=== PATIENT | female | born 1995 | race Asian ===

== ENCOUNTER 2017-12-03 01:56 | Emergency (ER) | payer MEDICAID, OTHER ==
[~2017-12-03] VITALS: Ht 170.2 cm; Wt 65.8 kg
[~2017-12-03 01:56] MED LIST: ADVIL100 MG ORAL; AUGMENTIN 875-1 EAC1 ORAL; BENADRYL25 MG PO; MEDROL DOSEPAK4 MG ORAL; NKM; POLYTRIM OP SOL10 ML OPHTHALM; TYLENOL650 MG/20. ORAL
[2017-12-03] MEDS ORDERED: METOPROLOL SUCC50 MG ORAL (02:07)
--- NOTE | 2017-12-03 02:13 | Emergency Room Report ---
History of Present Illness General Chief Complaint: Nausea, Vomiting, and Diarrhea Source: Patient Present Illness HPI 22-year-old female with no sig pmhx p/w nausea vomiting diarrhea and crampy abdominal pain for 5 hours Patient states pain started gradually , all over her abdomen, non radiating, cramping in nature, intermittent. No relieving or exacerbating factors. Pt reports n/v, 15 episodes of nbnb vomiting, 15 episodes of watery green non bloody diarrhea. Denies black or bloody stools. Subjective fever. No hx of abdominal surgeries. No hx of endoscopies/colonoscopies. No recent antibiotic use or recent travel. No dysuria or hematuria Allergies: Coded Allergies: No Known Allergies (Unverified , 04/02/13) Patient History Past Medical History: see triage record Past Surgical History: none Pertinent Family History: none Last Menstrual Period: 1 week ago Now: No Reviewed Nursing Documentation: PMH: Agreed; PSxH: Agreed Nursing Documentation-PMH Past Medical History: No History, Except For Hx Cardiac Problems: Yes - Irregular heartbeat Review of Systems All Other Systems: negative except mentioned in HPI Physical Exam Vital Signs Date Time Temp Pulse Resp B/P (MAP) Pulse Ox O2 Delivery O2 Flow Rate FiO2 12/03/17 02:02 97.9 88 16 126/79 99 Room Air 97.9 Sp02 EP Interpretation: reviewed, normal General Appearance: alert, GCS 15, non-toxic, mild distress Head: normocephalic, atraumatic Eyes: bilateral eye normal inspection, bilateral eye PERRL, bilateral eye EOMI ENT: normal ENT inspection, normal pharynx, normal voice, moist mucus membranes Neck: normal inspection, full range of motion, supple Respiratory: normal inspection, lungs clear, normal breath sounds, no respiratory distress, no retraction, no wheezing, speaking full sentences, chest symmetrical Cardiovascular #1: normal inspection, regular rate, rhythm, no edema, normal capillary refill Cardiovascular #2: 2+ radial (R), 2+ radial (L) Gastrointestinal: normal inspection, non tender, soft, non-distended, no guarding Musculoskeletal: normal inspection, back normal, normal range of motion, non- tender Neurologic: normal inspection, alert, oriented x3, responsive, motor strength/ tone normal, sensory intact, normal gait, speech normal Psychiatric: normal inspection, judgement/insight normal, memory normal Skin: normal inspection, normal color, no rash, warm/dry, well hydrated, normal turgor Medical Decision Making Diagnostic Impression: Primary Impression: Nausea, vomiting, and diarrhea ER Course 22-year-old female with nausea vomiting diarrhea and crampy abdominal pain Differential Diagnosis: Gastritis, gastroenteritis, cholecystitis, appendicitis, diverticulitis, UTI/ pyelo At this time abdomen is soft nontender, not likely to have acute intra- abdominal surgical pathology, will hold CT for now. Plan: Basic labs, ua Pepcid, Zofran IV fluids ER course: Patient has remained stable during ED stay. Pain improved. no further episodes nausea labs unremarkable Repeat abdominal exam is nontender. Tolerating PO Disposition: Patient is to be discharged to home. Prescriptions given are Zofran Patient is instructed to follow up with their primary care doctor within 5 days. Strict return precautions discussed with patient such as fever, chills, worsening/severe abdominal pain, nausea, vomiting, black or bloody stools, which may indicate severe illness. Patient verbalizes understanding and agrees with plan. Please note that this Emergency Department Report was dictated using [employer] signal[employer] technology software, occasionally this can lead to erroneous entry secondary to interpretation by the dictation equipment Laboratory Tests Test 12/03/17 02:20 12/03/17 03:50 White Blood Count 3.9 K/UL (4.8-10.8) L Red Blood Count 4.64 M/UL (4.20-5.40) Hemoglobin 14.4 G/DL (12.0-16.0) Hematocrit 41.5 % (37.0-47.0) Mean Corpuscular Volume 89 FL (80-99) Mean Corpuscular Hemoglobin 31.0 PG (27.0-31.0) Mean Corpuscular Hemoglobin Concent 34.7 G/DL (32.0-36.0) Red Cell Distribution Width 11.2 % (11.6-14.8) L Platelet Count 203 K/UL (150-450) Mean Platelet Volume 8.2 FL (6.5-10.1) Neutrophils (%) (Auto) 65.7 % (45.0-75.0) Lymphocytes (%) (Auto) 21.9 % (20.0-45.0) Monocytes (%) (Auto) 10.1 % (1.0-10.0) H Eosinophils (%) (Auto) 1.6 % (0.0-3.0) Basophils (%) (Auto) 0.7 % (0.0-2.0) Sodium Level 139 MMOL/L (136-145) Potassium Level 3.5 MMOL/L (3.5-5.1) Chloride Level 102 MMOL/L (98-107) Carbon Dioxide Level 30 MMOL/L (21-32) Anion Gap 7 mmol/L (5-15) Blood Urea Nitrogen 9 mg/dL (7-18) Creatinine 0.8 MG/DL (0.55-1.30) Estimate Glomerular Filtration Rate > 60 mL/min (>60) Glucose Level 91 MG/DL (74-106) Calcium Level 8.8 MG/DL (8.5-10.1) Total Bilirubin 0.3 MG/DL (0.2-1.0) Aspartate Amino Transferase (AST) 27 U/L (15-37) Alanine Aminotransferase (ALT) 35 U/L (12-78) Alkaline Phosphatase 73 U/L (46-116) Total Protein 8.5 G/DL (6.4-8.2) H Albumin 4.2 G/DL (3.4-5.0) Globulin 4.3 g/dL Albumin/Globulin Ratio 1.0 (1.0-2.7) Lipase 89 U/L (73-393) Urine Color Pale yellow Urine Appearance Slightly cloudy Urine pH 5 (4.5-8.0) Urine Specific [place] 1.010 (1.005-1.035) Urine Protein Negative (NEGATIVE) Urine Glucose (UA) Negative (NEGATIVE) Urine Ketones 2+ (NEGATIVE) H Urine Occult Blood 2+ (NEGATIVE) H Urine Nitrite Negative (NEGATIVE) Urine Bilirubin Negative (NEGATIVE) Urine Urobilinogen Normal MG/DL (0.0-1.0) Urine Leukocyte Esterase 1+ (NEGATIVE) H Urine RBC 2-4 /HPF (0 - 2) H Urine WBC 5-10 /HPF (0 - 2) H Urine Squamous Epithelial Cells Moderate /LPF (NONE/OCC) H Urine Transitional Epithelial Cells /LPF (NONE) Urine Bacteria Few /HPF (NONE) Urine HCG, Qualitative Negative (NEGATIVE) Last Vital Signs Date Time Temp Pulse Resp B/P (MAP) Pulse Ox O2 Delivery O2 Flow Rate FiO2 12/03/17 02:02 97.9 88 16 126/79 99 Room Air 97.9 Disposition: HOME, SELF-CARE Condition: Improved Scripts Ondansetron Odt* (ZOFRAN ODT*) 4 Mg Tab.rapdis 4 MG ORAL Q6H PRN for Nausea & Vomiting, #15 TAB 0 Refills Prov: Vicenta Alexis M.D. 12/03/17 Patient Instructions: VOMITING AND DIARRHEA, Nonspecific (Adult) Vicenta Alexis M.D. Dec 03, 2017 02:13
[2017-12-03 02:15] VITALS: BP 126/79
[2017-12-03 03:32] LABS: BASOPHILS % (AUTO) 0.7 % (0.0-2.0); EOSINOPHILS % (AUTO) 1.6 % (0.0-3.0); HEMATOCRIT 41.5 % (37.0-47.0); HEMOGLOBIN 14.4 G/DL (12.0-16.0); LYMPHOCYTES % (AUTO) 21.9 % (20.0-45.0); MEAN CORPUSCULAR VOLUME 89 FL (80-99); MONOCYTES % (AUTO) 10.1 % (1.0-10.0); NEUTROPHILS % (AUTO) 65.7 % (45.0-75.0); PLATELET COUNT 203 K/UL (150-450); RED BLOOD COUNT 4.64 M/UL (4.20-5.40); RED CELL DISTRIBUTION WIDTH 11.2 % (11.6-14.8); WHITE BLOOD COUNT 3.9 K/UL (4.8-10.8)
[2017-12-03 03:36] LABS: ANION GAP 7 mmol/L (5-15); BLOOD UREA NITROGEN 9 mg/dL (7-18); CALCIUM 8.8 MG/DL (8.5-10.1); CARBON DIOXIDE 30 MMOL/L (21-32); CHLORIDE 102 MMOL/L (98-107); CREATININE 0.8 MG/DL (0.55-1.30); POTASSIUM 3.5 MMOL/L (3.5-5.1); SODIUM 139 MMOL/L (136-145)
[2017-12-03 03:41] LABS: ALANINE AMINOTRANSFERASE 35 U/L (12-78); ALBUMIN 4.2 G/DL (3.4-5.0); ALKALINE PHOSPHATASE 73 U/L (46-116); ASPARTATE AMINO TRANSFERASE 27 U/L (15-37); BILIRUBIN,TOTAL 0.3 MG/DL (0.2-1.0)
[2017-12-03] MEDS ORDERED: ZOFRAN ODT4 MG ORAL (04:23)
[2017-12-03 05:32] LABS: APPEARANCE,URINE SLIGHTLY CLOUDY; BILIRUBIN, URINE NEGATIVE (NEGATIVE); GLUCOSE, URINE (UA) NEGATIVE (NEGATIVE); LEUKOCYTE ESTERASE ,URINE 1+ (NEGATIVE); NITRITE,URINE NEGATIVE (NEGATIVE); UROBILINOGEN,URINE NORMAL MG/DL (0.0-1.0)
[2017-12-03 05:35] LABS: COLOR,URINE PALE YELLOW; KETONES,URINE 2+ (NEGATIVE); PH,URINE 5 (4.5-8.0); PROTEIN,URINE NEGATIVE (NEGATIVE)
[2017-12-03 06:10] VITALS: BP 116/63
== END 2017-12-03 06:10 | disposition home or self-care (01) ==
LOC: EMR 02:20
DX: R11.2 Nausea with vomiting, unspecified (principal); R19.7 Diarrhea, unspecified
CPT/HCPCS: 36415; 80053; 81003; 81025; 83690; 85025; 96374; 96375; 99284; J2405; S0028

== ENCOUNTER 2020-07-29 10:56 | Emergency (ER) | payer MEDICAID ==
[~2020-07-29] VITALS: Ht 167.6 cm; Wt 68.0 kg
[~2020-07-29 10:56] MED LIST changes: +METOPROLOL SUCC50 MG ORAL; +ZOFRAN ODT4 MG ORAL
--- NOTE | 2020-07-29 11:06 | NUR ---
ED Nurse Note: Patient walked in to ER from home due to left knee pain since last night, unk cause. Denies fall/ injury to the area. AAOx4, no SOB. ERMD at bedside.
[2020-07-29] MEDS ORDERED: IBUPROFEN600 M1 ORAL (11:15)
--- NOTE | 2020-07-29 11:18 | Emergency Room Report ---
History of Present Illness General Chief Complaint: Lower Extremity Injury Source: Patient Present Illness HPI Disclaimer: Please note that this report is being documented using [employer] technology. This can lead to erroneous entry secondary to incorrect interpretation by the dictating instrument. HPI: 25-year-old female presents for evaluation of atraumatic left knee pain. Symptoms present 1 day. She went to bed in her usual state of health and award today with stiffness in the left knee. Pain is located over the proximal tibia. Denies pain over the patella or lateral portion of the knee. Denies swelling, effusion, redness, warmth, throbbing. Pain is exacerbated flexing the knee past 90 degrees. Initially difficult to start ambulating but better with movement. Has not taken any medication prior to arrival. No prior history of injury. No prior history of instrumentation. Does not inject any medications or IV drugs. Denies recent dysuria, vaginal discharge other signs of cervicitis. PMH: Denied PSH: Denied Allergies: Denied Social Hx: Denied Allergies: Coded Allergies: No Known Allergies (Unverified , 04/02/13) COVID-19 Screening Contact w/high risk pt: No Experienced COVID-19 symptoms?: No COVID-19 Testing performed MULE RIDER: No Patient History Last Menstrual Period: 06/24/2020 Now: No Nursing Documentation-PMH Hx Cardiac Problems: Yes - Irregular heartbeat Review of Systems All Other Systems: negative except mentioned in HPI Physical Exam Vital Signs Date Time Temp Pulse Resp B/P (MAP) Pulse Ox O2 Delivery O2 Flow Rate FiO2 07/29/20 11:02 98.4 81 20 129/70 (89) 96 Room Air General: Awake and alert, no acute distress HEENT: NC/AT. EOMI. Resp: Normal work of breathing Skin: Intact. No abrasions, laceration or rash over the exposed skin MSK: Normal tone and bulk. Moving all extremities. No obvious deformity. No effusion around the left knee. Tender to palpation over the proximal tibia. No palpable deformity. There is no instability on varus or valgus testing. Kerry testing unremarkable. Patella in anatomic position nontender. No tenderness over the fibula Neuro: Awake and alert. Mentating appropriately Medical Decision Making Diagnostic Impression: Primary Impression: Knee pain ER Course 25-year-old female presents for evaluation of 1 day atraumatic left knee pain. No evidence of effusion or infection. Possible overuse injury, meniscal injury, ligamentous injury. Low suspicion for bony injury at this time. Patient is negative per [place] knee rules and does not require imaging at this time. Will place in a supportive wrap, prescribed NSAIDs, follow-up with orthopedic surgery as needed. Instructed to return with new or worsening symptoms. She understands and agrees with this treatment plan. Last Vital Signs Date Time Temp Pulse Resp B/P (MAP) Pulse Ox O2 Delivery O2 Flow Rate FiO2 07/29/20 11:02 98.4 81 20 129/70 (89) 96 Room Air Disposition: HOME, SELF-CARE Condition: Stable Scripts Ibuprofen* (MOTRIN*) 600 Mg Tablet 600 MG ORAL Q6H PRN for For Pain, #30 TAB 0 Refills Prov: Tyson Gay MD 07/29/20 Referrals: [facility] Renetta Santacruz [facility]. [facility] Open 24 hour /7 days a week by Appointment Only [address] [address] Patient Instructions: Combined Knee Ligament Sprain Additional Instructions: Rest, ice and elevate the knee as much as possible. Take medication as prescribed. Follow-up with orthopedic clinic if symptoms fail to improve. Return to the emergency department new or worsening symptoms. Tyson Gay MD Jul 29, 2020 11:18
[2020-07-29 11:25] VITALS: BP 129/70
--- NOTE | 2020-07-29 11:25 | NUR ---
ED Nurse Note: Pt cleared by ERMD for discharge. DC instructions was given and explained to pt and verbalized understanding of teachings. v sent elevtronically to the pharmacy of choice. All medical deviecs such as ID band removed. Pt is AAO x4, ambulatory and left with all personal belongings.
== END 2020-07-29 11:25 | disposition home or self-care (01) ==
LOC: EMR 11:13
DX: M25.562 Pain in left knee (principal)
CPT/HCPCS: 99282